=== PATIENT | female | born 1990 | race Caucasian/White ===

== ENCOUNTER 2017-11-04 10:37 | Emergency (ER) | payer SELFPAY ==
[2017-11-04] MEDS ORDERED: DEXAMETHASONE SOD PHOS INJ 10 MG/1 ML VIAL IM ONE (11:04)
[2017-11-04] MEDS ORDERED: IBUPROFEN 600 MG TABLET PO ONE (11:04)
--- NOTE | 2017-11-04 11:18 | ER Document Report ---
ED ENT - General Chief Complaint: Sore Throat Stated Complaint: THROAT PAIN Time Seen by Provider: 11/04/17 10:51 Mode of Arrival: Ambulatory Information source: Patient TRAVEL OUTSIDE OF THE [place] IN LAST 30 DAYS: No - HPI Patient complains to provider of: Throat problem Notes: Patient is here with complaints of sore throat. She states that she has had a sore throat for about 2 days now. She denies fevers. She states that she noticed some sores in the back of her throat. She denies any current nausea, vomiting, diarrhea but states that she vomited once a few days ago. She denies any cough. She denies any difficulty breathing or swallowing other than the fact that it hurts to swallow. She denies any neck swelling. No headache. No neck stiffness. No blurred or loss vision. No chest pain or shortness of breath. No abdominal pain. She denies any other complaints at this time. Pain is worse with swallowing. - Related Data Allergies/Adverse Reactions: No Known Allergies Allergy (Verified 11/04/17 10:41) Past Medical History - Social History Smoking Status: Never Smoker Chew tobacco use (# tins/day): No Frequency of alcohol use: Occasional Drug Abuse: None Family History: CAD, CVA, Hypertension, Malignancy, Thyroid Disfunction Patient has suicidal ideation: No Patient has homicidal ideation: No Pulmonary Medical History: Reports: Hx Bronchitis Neurological Medical History: Reports: Hx Migraine Renal/ Medical History: Reports: Hx Ovarian Cysts. Denies: Hx Peritoneal Dialysis Musculoskeltal Medical History: Reports Hx Musculoskeletal Trauma Psychiatric Medical History: Reports: Hx Depression - depression Traumatic Medical History: Reports: Hx Fractures - Toes and ankle - Immunizations Hx Diphtheria, Pertussis, Tetanus Vaccination: - unknown Review of Systems - Review of Systems -: Yes All other systems reviewed and negative Physical Exam - Vital signs Vitals: Temp Pulse Resp BP Pulse Ox 98.6 F 77 14 120/74 100 11/04/17 10:41 11/04/17 10:41 11/04/17 10:41 11/04/17 10:41 11/04/17 10:41 - Notes Notes: GENERAL: alert, cooperative, nontoxic, no distress. HEAD: normocephalic, atraumatic EYES: conjunctiva pink without discharge, no external redness or swelling. EARS: no external swelling, no external redness, no mastoid redness, swelling, tenderness. Ear canals are clear without swelling or drainage. TMs pearly yañez , no redness, no bulging, normal landmarks, no perforation. NOSE: atraumatic, no external swelling. MOUTH/THROAT: mucous membranes moist and pink, erythema to the posterior pharynx. Moderate swelling to both tonsils as well as the uvula. Airway is open. He is noted to have several ulcerations to the upper palate as well as the posterior pharynx. Uvula is midline. There is no trismus or drooling. No peritonsillar abscess. No stridor. NECK: soft, supple, full range of motion, no meningismus. No anterior cervical lymphadenopathy CHEST: no distress, lungs clear and equal throughout. No wheezing, rales, rhonchi. CARDIAC: regular rate and rhythm, no murmur, normal capillary refill, normal pulses. No peripheral edema noted. BACK: full range of motion, no CVA tenderness. EXTREMITIES: full range of motion of all extremities. No redness, no swelling. NEURO: alert and oriented A&O3, no focal deficits, full range of motion of all extremities. PYSCH: appropriate mood, affect. Patient is cooperative. SKIN: pink, warm, dry, no rash. Course - Re-evaluation Re-evalutation: 11/04/17 12:19 Patient is nontoxic appearing with stable vitals. She is here with complaints of sore throat for the last few days. On exam she has swelling and erythema to the posterior pharynx with ulcerations the posterior pharynx as well as the roof of the mouth. This exam is consistent more likely with viral infection. Rapid strep was negative. Throat culture is pending. Patient is tolerating her secretions well she is able to swallow ibuprofen pills in the emergency department without significant trouble. Her airway is patent. She was given a dose of Decadron and ibuprofen in the emergency department since she drove herself here. She will be discharged home with Naprosyn and Magic mouthwash. Follow-up if not better in the next 5-7 days, sooner for increasing pain, fever , difficulty breathing or swallowing, persistent vomiting, or for any further concerns. The patient's emergency department workup and current diagnosis were explained to the patient and or family. Follow-up instructions were provided. Medications if prescribed were discussed. Instructions for when to return to the emergency department including specific worrisome symptoms were discussed with the patient and/or family. - Vital Signs Vital signs: Temp Pulse Resp BP Pulse Ox 98.6 F 77 14 120/74 100 11/04/17 10:41 11/04/17 10:41 11/04/17 10:41 11/04/17 10:41 11/04/17 10:41 Discharge - Discharge Clinical Impression: Viral pharyngitis Condition: Stable Disposition: HOME, SELF-CARE Instructions: Sore Throat ([facility]), Viral Syndrome ([facility]) Additional Instructions: Take medications as prescribed. You may also take [id number] Tylenol as needed for pain. Drink plenty of fluids. Follow-up if not better in the next 5 -7 days, sooner for increasing pain, fever, difficulty breathing or swallowing, persistent vomiting, neck swelling, or for any further concerns. Prescriptions: Naproxen [Naprosyn] 500 mg PO BID #20 tablet Nystatin/Dexameth/Diphen [Magic Mouthwash ([facility] Formula) Susp] 5 ml PO QID #120 ml Forms: Smoking Cessation Education Referrals: [facility] [Provider Group] - Follow up as needed
[2017-11-04 12:35] VITALS: BP 112/70
== END 2017-11-04 12:35 | disposition home or self-care (01) ==
LOC: ER 10:37
DX: J02.8 Acute pharyngitis due to other specified organisms (principal); B97.89 Other viral agents as the cause of diseases classified elsewhere
CPT/HCPCS: 99283; 96372; 87070; 87880; J1100

== ENCOUNTER 2017-12-22 21:20 | Emergency (ER) | payer SELFPAY ==
--- NOTE | 2017-12-22 21:54 | RADIOLOGY REPORT (SQ) ---
EXAM DESCRIPTION: ANKLE LEFT COMPLETE COMPLETED DATE/TIME: 12/22/2017 9:43 pm REASON FOR STUDY: pain s/p injury COMPARISON: None. NUMBER OF VIEWS: Three views. TECHNIQUE: AP, lateral, and oblique radiographic images acquired of the left ankle. LIMITATIONS: None. FINDINGS: MINERALIZATION: Normal. BONES: No acute fracture or dislocation. No worrisome bone lesions. JOINTS: No effusions. SOFT TISSUES: Lateral soft tissue swelling. No foreign body. OTHER: No other significant finding. IMPRESSION: LATERAL SOFT TISSUE SWELLING. NO ACUTE BONY FINDINGS. TECHNICAL DOCUMENTATION: JOB ID: [id number]- All Rights Reserved Reading location - IP/workstation name: [email or web address]
[2017-12-23] MEDS ORDERED: HYDROCODONE/ACETAMINOPHEN 5-325 MG (6 TAB/ER DISP) PO PRN (00:01)
[2017-12-23] MEDS ORDERED: HYDROCODONE/ACETAMINOPHEN 5-325 MG TABLET PO ONE (00:01)
--- NOTE | 2017-12-23 00:10 | ER Document Report ---
ED General - General Chief Complaint: Ankle Injury Stated Complaint: ANKLE INJURY Time Seen by Provider: 12/22/17 23:56 Notes: Patient is a pleasant 27-year-old female who was walking on steps and then fell her ankle roll. She has pain and swelling to her left ankle. She denies any other injuries. No pain into the knee. No pain over Achilles tendon. No pain into the foot. No other complaints at this time. TRAVEL OUTSIDE OF THE [place] IN LAST 30 DAYS: No - Related Data Allergies/Adverse Reactions: No Known Allergies Allergy (Verified 11/04/17 10:41) Past Medical History - Social History Smoking Status: Unknown if Ever Smoked Frequency of alcohol use: None Drug Abuse: None Family History: CAD, CVA, Hypertension, Malignancy, Thyroid Disfunction Patient has suicidal ideation: No Patient has homicidal ideation: No Pulmonary Medical History: Reports: Hx Bronchitis Neurological Medical History: Reports: Hx Migraine Renal/ Medical History: Reports: Hx Ovarian Cysts. Denies: Hx Peritoneal Dialysis Musculoskeltal Medical History: Reports Hx Musculoskeletal Trauma Psychiatric Medical History: Reports: Hx Depression - depression Traumatic Medical History: Reports: Hx Fractures - Toes and ankle - Immunizations Hx Diphtheria, Pertussis, Tetanus Vaccination: - unknown Review of Systems - Review of Systems Notes: My Normal Review Basic REVIEW OF SYSTEMS: CONSTITUTIONAL : Denies fever, chills, or sweats. Denies recent illness. MUSCULOSKELETAL: Left ankle pain SKIN: Denies rash or skin lesions. NEUROLOGICAL: Denies sensory or motor loss. ALL OTHER SYSTEMS REVIEWED AND NEGATIVE. Physical Exam - Vital signs Vitals: Temp Pulse Resp BP Pulse Ox 99.0 F 79 18 122/78 99 12/22/17 22:02 12/22/17 22:02 12/22/17 22:02 12/22/17 22:02 12/22/17 22:02 - Notes Notes: General Appearance: Well nourished, alert, cooperative, no acute distress, moderate obvious discomfort. Vitals: reviewed, See vital signs table. Head: no swelling to the head Eyes: PERRL, EOMI, Conjuctiva clear Extremities: strength 5/5 in all extremities, good pulses in all extremities, patient has obvious swelling to the lateral malleolus of the left ankle. Some bruising as well. No pain proximal to the left ankle.. No pain into the foot. , No distal pulses and good capillary refill. Good distal sensation. No edema. Skin: warm, dry, appropriate color, no rash Neuro: speech clear, oriented x 3, normal affect, responds appropriately to questions. Course - Re-evaluation Re-evalutation: 12/23/17 05:47 Patient's x-rays negative. She has a sprained ankle. We will give her crutches as well as an ankle splint. I gave her some stronger pain medicine. I informed her to only take this for breakthrough pain. I will give her a few days off work. Encouraged her return to ER if she has worsening pain feels unwell. - Vital Signs Vital signs: Temp Pulse Resp BP Pulse Ox 97.9 F 86 13 130/69 H 100 12/23/17 00:30 12/23/17 00:30 12/23/17 00:30 12/23/17 00:30 12/23/17 00:30 Discharge - Discharge Clinical Impression: Ankle sprain Qualifiers: Encounter type: initial encounter Involved ligament of ankle: other ligament Laterality: left Qualified Code(s): S93.492A - Sprain of other ligament of left ankle, initial encounter Condition: Good Disposition: HOME, SELF-CARE Instructions: Oral Narcotic Medication ([facility]) Additional Instructions: Please take Tylenol 500mg every 4 hours and Motrin 600mg every 6 hours during the day. Please reserve the [place] for severe unrelenting pain. Do not take the [place] on a regular basis as it can be addicting. Please do not bear weight on your left ankle until it is no longer painful to bear weight. Please follow up with the orthopedist in 1 week if you are not improving. Forms: Return to Work Referrals: CHANEL DOYLE MD [ACTIVE STAFF] - Follow up in 1 week
[2017-12-23 00:31] VITALS: BP 130/69
== END 2017-12-23 00:32 | disposition home or self-care (01) ==
LOC: ER 21:20
DX: S93.492A Sprain of other ligament of left ankle, initial encounter (principal); X50.0XXA Overexertion from strenuous movement or load, initial encounter
CPT/HCPCS: 99283; 73610; L1902